=== PATIENT | female | born 1975 | race African-American/Black ===

== ENCOUNTER 2017-11-07 13:13 | Emergency (ER) | payer MEDICAID ==
--- NOTE | 2017-11-07 15:14 | EDM.PDOC ---
ED HPI GENERAL MEDICAL PROBLEM - History of Present Illness Duration: Waxing/Waning Location: Reports: Abdomen, Pelvis Quality: Reports: Ache, Other (cramping) Improves with: Reports: Rest Worsens with: Reports: Movement (walking) Associated Symptoms: Reports: Other (constipation). 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 Patient is , her last menstrual cycle was on 07/22, she took a home test that was positive. She describes the pain as across her pelvis, it does not lateralize, describes the pain as aching and cramping. Pain increases with walking. Lying down decreases pain. Associated symptoms include constipation. Patient and her family moved here from [place] on 11/03/17. She states that she has been trying to maintain adequate hydration. Patient denies vaginal bleeding, spotting, gushes of fluid per vagina, or severe abdominal pain. Patient has not seen an OBGYN since the start of this . (Gaby Resendez) I have seen the patient and agree with the HPI as documented by BELINDA Hu. (Claudia Sultana) - Related Data Allergies Allergy/AdvReac Type Severity Reaction Status Date / Time No Known Allergies Allergy Verified 11/07/17 14:23 Home Meds: Home Meds . [No Known Home Meds] 11/07/17 [History] ED ROS GENERAL - Review of Systems Constitutional: Reports: No Symptoms HEENT: Reports: No Symptoms Respiratory: Denies: Shortness of Breath Cardiovascular: Denies: Chest Pain, Lightheadedness GI/Abdominal: Reports: Constipation : Reports: Pain (pelvic cramping pain). Denies: Discharge, Dysuria, Flank Pain, Frequency, Urgency Musculoskeletal: Reports: No Symptoms Skin: Reports: No Symptoms Neurological: Reports: No Symptoms <Gaby Resendez - Last Filed: 11/07/17 15:56> - Review of Systems Review Of Systems: See Below Constitutional: Denies: Fever, Chills GI/Abdominal: Denies: Nausea, Vomiting <Claudia Sultana - Last Filed: 11/10/17 19:26> ED EXAM - Physical Exam Exam: See Below Exam Limited By: No Limitations General Appearance: Alert, WD/WN, No Apparent Distress Eye Exam: Bilateral Eye: EOMI, PERRL Head: Atraumatic, Normocephalic Respiratory/Chest: No Respiratory Distress, Lungs Clear, Normal Breath Sounds, No Accessory Muscle Use, Chest Non-Tender. No: Crackles, Rhonchi, Wheezing Cardiovascular: Normal Peripheral Pulses, Regular Rate, Rhythm, No Murmur, No Rub GI/Abdominal Exam: Normal Bowel Sounds, Soft, Non-Tender, No Organomegaly, No Distention Heart Tones: Present Heart Tones per Min: 165 Neurological: Alert, Oriented Skin Exam: Warm, Dry, Intact, Normal Color <Gaby Resendez - Last Filed: 11/07/17 15:56> - Physical Exam Exam: See Below <Claudia Sultana - Last Filed: 11/10/17 19:26> Course <Gaby Resendez - Last Filed: 11/07/17 15:56> <Claudia Sultana - Last Filed: 11/10/17 19:26> - Vital Signs Last Recorded V/S: Last Vital Signs Temp 96.8 F 11/07/17 14:20 Pulse 81 11/07/17 14:20 Resp 16 11/07/17 14:20 BP 139/83 11/07/17 14:20 Pulse Ox 99 11/07/17 14:20 - Orders/Labs/Meds Labs: Laboratory Tests 11/07/17 11/07/17 11/07/17 Range/Units 14:50 14:50 14:54 HCG, Quant 16124.0 mIU/mL Urine Color Yellow (Yellow) Urine Appearance Clear (Clear) Urine pH 6.0 (5.0-8.0) Ur Specific [place] 1.020 (1.005-1.030) Urine Protein Negative (Negative) Urine Glucose (UA) Negative (Negative) Urine Ketones Negative (Negative) Urine Occult Blood Trace-lysed H (Negative) Urine Nitrite Negative (Negative) Urine Bilirubin Negative (Negative) Urine Urobilinogen 0.2 (0.2-1.0) Ur Leukocyte Esterase Negative (Negative) Urine RBC 0-5 (0-5) /hpf Urine WBC Not seen (0-5) /hpf Ur Epithelial Cells 0-5 (0-5) /hpf Urine Bacteria Not seen (FEW) /hpf Urine Mucus Not seen (FEW) /hpf Blood Type B POSITIVE - Re-Assessments/Exams Free Text/Narrative Re-Assessment/Exam: 11/07/17 15:39 I have seen the patient and agree with the HPI, ROS and PE as documented by BELINDA Hu. Patient has good heart tones. Likely uterine stretching and ligamentous pain causing discomfort and cramps. I will have her follow-up with ob for further evaluation. Discharge instructions as documented. (Claudia Sultana) Departure <Gaby Resendez - Last Filed: 11/07/17 15:56> - Departure Time of Disposition: 15:47 Condition: Fair <Claudia Sultana - Last Filed: 11/10/17 19:26> - Departure Disposition: Home, Self-Care 01 Clinical Impression: , Cramping affecting , antepartum - Discharge Information Instructions: Abdominal Pain During , [id number] Referrals: PCP,Not In Area [Primary Care Provider] - Tomi Carmona MD [Physician] - Forms: ED Department Discharge Additional Instructions: [id number] Tylenol as needed for pain relief. No ibuprofen, NSAIDs, etc. you are . A List has been provided for review of medications may taking your . Recommend follow-up with OB as soon as you were able to. Recommend Dr. Carmona at the [facility]. Call [phone] to schedule with him. Make sure you're drinking plenty of fluids. drink about half your body weight in ounces of fluid every day. Please return to the ER for symptoms change or worsen.
== END 2017-11-07 15:55 | disposition home or self-care (01) ==
LOC: JD.ED 13:13
DX: O09.511 Supervision of elderly primigravida, first trimester (principal); O99.89 Other specified diseases and conditions complicating pregnancy, childbirth and the puerperium; R10.2 Pelvic and perineal pain; Z3A.12 12 weeks gestation of pregnancy
CPT/HCPCS: 36415; 81001; 84702; 86900; 86901; 99283; 99284